=== PATIENT | male | born 1955 | race African-American/Black ===

== ENCOUNTER 2020-09-12 07:08 | Day surgery (SDC) | payer OTHER ==
[2020-09-09 09:48] VITALS: BMI 40.3
[2020-09-12 08:16] VITALS: TEMP 98
[2020-09-12] MEDS ORDERED: MIDAZOLAM HCL 2 MG/2 ML SINGLE DOSE VIAL ONE ×2 (09:04→09:41)
[2020-09-12] MEDS ORDERED: ROPIVACAINE HCL 0.5% 30ML VIAL ONE (09:04)
[2020-09-12] MEDS ORDERED: BUPIVACAINE HCL/EPINEPHRINE/PF 30 ML VIAL IJ ONE (09:07)
[2020-09-12] MEDS ORDERED: BUPIVACAINE HCL/PF 0.25% (2.5MG/ML) 10 ML VIAL ONE (09:07)
[2020-09-12] MEDS ORDERED: ceFAZolin SODIUM 1 GM VIAL ONE ×2 (09:26→09:46)
[2020-09-12] MEDS ORDERED: PROPOFOL 20 ML ONE (09:27)
[2020-09-12 12:24] VITALS: PULSE 60
[2020-09-12 12:57] VITALS: BP 143/92
[2020-09-12] MEDS ORDERED: oxyCODONE HCL 5 MG TABLET PO PRN ×2 (13:45)
[2020-09-12] MEDS ORDERED: ONDANSETRON 4 MG/2 ML VIAL IVPUSH PRN (13:45)
[2020-09-12] MEDS ORDERED: LACTATED RINGERS SOLUTION 1,000 ML IV SCH (13:45)
== END 2020-09-12 12:50 | disposition home or self-care (01) ==
LOC: FASU 07:08
PROVIDERS: ATTEND Orthopaedic Surgery Orthopaedic Surgery of the Spine
PROC: 0PBF0ZZ Excision of Right Humeral Shaft, Open Approach (ICD-10-PCS; 2020-09-12)
PROC: 0LN30ZZ Release Right Upper Arm Tendon, Open Approach (ICD-10-PCS; principal; 2020-09-12 09:00)
DX: M77.11 Lateral epicondylitis, right elbow (principal); E66.09 Other obesity due to excess calories; Z68.41 Body mass index [BMI] 40.0-44.9, adult; Z96.651 Presence of right artificial knee joint; Z85.46 Personal history of malignant neoplasm of prostate